=== PATIENT | female | born 1960 | race Caucasian/White ===

== ENCOUNTER 2016-12-13 10:36 | Observation (INO) ==
[2016-12-13] MEDS ORDERED: SALINE FLUSH 10ml SYRINGE IVF PRN (10:46)
[2016-12-13] MEDS ORDERED: DiphenhydrAMINE 50 MG/ML INJECTION IVP ONE (10:47)
[2016-12-13] MEDS ORDERED: ALBUTEROL 2.5mg/3ml (0.083%) NEB AEROSOL ONE (10:47)
[2016-12-13] MEDS ORDERED: METHYLPREDNISOLONE SOD SUCC 125mg/2ml INJECTION IVP ONE (10:47)
[2016-12-13] MEDS ORDERED: NS 1,000 ML IV ONE ×2 (10:48→13:11)
--- NOTE | 2016-12-13 10:48 | Emergency Department Report ---
Allergic Reaction HPI - General Stated complaint: skin burning,throat tightness Time Seen by Provider: 12/13/16 10:46 Source: patient, EMS Mode of arrival: EMS Limitations: no limitations - History of Present Illness HPI narrative: Patient is a 56-year-old female presents the emergency department for evaluation of shortness of air, swelling of throat and tongue. Patient went swimming in a pool today approximately half an hour after getting out of the pool patient felt flushed and burning all over her skin this started developed some shortness of air in her throat and tongue. EMS was called, EMS was unable to obtain IV access patient was placed on a nonrebreather. EMS reported at one time a blood pressure of 60/40, on arrival patient was speaking is have her call more swollen, oxygen saturation's were normal blood pressure 111/53 heart rate 98. MD complaint: allergic reaction Onset (ago): hour(s) Exposure: unknown Symptoms: rash, difficulty breathing, tongue swelling Previous Allergic Reaction History: none - Related Data Home Medications Medication Instructions Recorded Confirmed Bumetanide 1 mg PO BID #60 06/20/14 12/13/16 Chlorthalidone 25 mg PO DAILY #30 06/20/14 12/13/16 Meloxicam 7.5 mg PO DAILY #30 06/20/14 12/13/16 PARoxetine HCl [Paxil] 60 mg PO DAILY #0 tab 06/20/14 12/13/16 Potassium Chloride ER Tab [K-Dur] 20 meq PO BID #30 06/20/14 12/13/16 Propranolol HCl 40 mg PO BID #60 06/20/14 12/13/16 Previous Rx's Medication Instructions Recorded Meloxicam [Mobic] 15 mg PO DAILY #30 tab 07/07/14 Allergies Allergy/AdvReac Type Severity Reaction Status Date / Time meperidine Allergy Unknown ITCHING, Verified 12/13/16 11:15 RASH morphine Allergy Unknown RASH, Verified 12/13/16 11:15 ITCHING sulfasalazine AdvReac Unknown TONGUE Verified 12/13/16 11:15 FISSURE Review of Systems Constitutional: Reports: weakness. Denies: fever, chills ENT: Reports: throat pain, dysphagia Cardiovascular: Denies: chest pain Respiratory: Reports: dyspnea, wheezes. Denies: cough Gastrointestinal: Denies: abdominal pain Genitourinary: Denies: urgency, dysuria Musculoskeletal: Denies: back pain Neurological: Denies: headache, weakness Psychiatric: Reports: anxiety. Denies: depression Allergic/Immunologic: Reports: facial swelling, urticaria PFSH Medical History Updates: Migraines. Hypertension. Peripheral edema. Hypokalemia. Depression. Psoriatic arthritis Surgical History: Hip replacement - Social History Smoking status: Current every day smoker Substance use type: does not use Alcohol intake frequency: does not drink Physical Exam - General General appearance: alert, anxious - Eye Eye exam: Present: normal appearance - ENT ENT exam: Present: normal oropharynx, mucous membranes dry - Chest Chest inspection: Present: symmetric chest wall rise, rash (mild erythema,). Absent: tenderness - Respiratory Respiratory exam: Present: normal lung sounds bilaterally, wheezes (faint upper) . Absent: respiratory distress, stridor, accessory muscle use - Cardiovascular Cardiovascular exam: Present: regular rate, normal rhythm, normal heart sounds - Abdominal Exam Abdominal exam: Present: soft. Absent: distention - Extremities Exam Extremities exam: Present: full ROM - Skin Skin exam: Present: warm, dry, erythema - Neurological Exam Neurological exam: Present: alert, oriented X3 - Psychiatric Psychiatric exam: Present: normal affect, anxious Course - Reevaluation(s) Reevaluation #1: Patient still complaining of some mild tightness in her throat, tongue swelling has improved, is complaining of continued shortness of air, after epinephrine, Solu-Medrol, albuterol, 50 mg of Benadryl Patient continuing to improve, is complaining of some continued chest tightness , DuoNeb ordered, Pepcid IV ordered Patient much improved still complaining of some mild tightness in her throat, and some mild dyspnea, troponin has returned, 0.167, given patient's hemoglobin of 16, suspect that this might be due to some mild dehydration, however will treat with aspirin, EKG Allergic Reaction - [facility] Narrative Medical decision making narrative: Patient resolution of symptoms except for some mild shortness of air she feels is located in her throat. Troponin is elevated at 0.167, did discuss briefly with cardiology, given patient's constellation of symptoms, dosing of epinephrine, and signs of dehydration with a hemoglobin of 16, they feel that this might be dilutional rather than acute coronary. They would recommend hospitalist admit and they would be happy to consult. Discussed case with Dr. Haynes, he will admit to the CCU, for further evaluation and monitoring - Differential Diagnosis Differential diagnosis: Likely: anaphylaxis, allergic reaction, adverse reaction to drug - Medical Records Attestation: I reviewed the patient's medical records. - Lab Data Attestation: I reviewed the patient's lab results. Result diagrams: 12/13/16 12:33 12/13/16 12:07 - Radiology Data Attestation: I reviewed the patient's radiology results. No acute cardiopulmonary findings - EKG Data EKG #1 EKG shows normal: sinus rhythm Rate: normal Rhythm: NSR Cisco/QRS: left axis deviation Interpretation: no acute changes Disposition Clinical Impression: Elevated troponin Anaphylaxis Qualifiers: Encounter type: initial encounter Qualified Code(s): T78.2XXA - Anaphylactic shock, unspecified, initial encounter Disposition: To OBS [facility] [place] Condition: Stable Prescriptions: No Action Meloxicam 7.5 mg PO DAILY #30 Propranolol HCl 40 mg PO BID #60 Chlorthalidone 25 mg PO DAILY #30 Bumetanide 1 mg PO BID #60 Potassium Chloride ER Tab [K-Dur] 20 meq PO BID #30 PARoxetine HCl [Paxil] 60 mg PO DAILY #0 tab Meloxicam [Mobic] 15 mg PO DAILY #30 tab Referrals: Ben Jones MD [Family Provider] - - Seen By: physician
[2016-12-13] MEDS ORDERED: ALBUTEROL/IPRATROPIUM 2.5mg-0.5mg/3ml NEB AEROSOL ONE (11:56)
[2016-12-13] MEDS ORDERED: FAMOTIDINE PB 20 MG/50 ML BAG IV SCH (12:00)
[2016-12-13] MEDS ORDERED: ONDANSETRON 4 MG/2 ML INJECTION IVP ONE (12:35)
[2016-12-13] MEDS ORDERED: ASPIRIN 81 MG CHEWABLE TABLET PO ONE (13:07)
[2016-12-13] MEDS ORDERED: ONDANSETRON 4 MG/2 ML INJECTION IVP PRN (13:58)
--- NOTE | 2016-12-13 14:14 | History & Physical Report ---
History of Present Illness Date: 12/13/16 Chief complaint: Shortness of breath HPI: 56-year-old female who is brought to the hospital after experiencing shortness of breath earlier today. Patient states that she jumped into her swimming pool and quickly became very short of breath afterwards. Believes that there is a mixup in the chemicals that are used to clean her swimming pool. She states that she got out of the swimming pool became very short of breath and experienced tightness in her chest. [place] as though she was becoming flushed all over. She denies any syncope seizures visual irritation changes. She states that she became very nauseous. States that the chest tightness did not radiate anywhere. She did not vomit. She states that her tongue swelled up and that she feels as though there is something stuck in the back of her throat. Patient admits to being noncompliant with her medications because of cost constraints. Upon arrival to the emergency department and after receiving epinephrine she feels much better. EMS documents a systolic blood pressure of [address]. Review of Systems All systems: reviewed and no additional remarkable complaints except as stated PFSH Patient Stated Medical History Hypertension Yes Other Musculoskeletal Yes: ARTHRITIS Depression Yes Medical History Updates: Migraines. Hypertension. Peripheral edema. Hypokalemia. Depression. Psoriatic arthritis Surgical History: Hip replacement - Social History Smoking status: Current every day smoker packs per day: 0.5 Alcohol intake: current Alcohol intake frequency: 3 or more drinks per day Medications Home Medications Medication Instructions Recorded Confirmed Type Bumetanide 1 mg PO BID #60 06/20/14 12/13/16 History Chlorthalidone 25 mg PO DAILY #30 06/20/14 12/13/16 History Meloxicam 7.5 mg PO DAILY #30 06/20/14 12/13/16 History PARoxetine HCl [Paxil] 60 mg PO DAILY #0 tab 06/20/14 12/13/16 History Potassium Chloride ER Tab [K-Dur] 20 meq PO BID #30 06/20/14 12/13/16 History Propranolol HCl 40 mg PO BID #60 06/20/14 12/13/16 History Allergies Allergy/AdvReac Type Severity Reaction Status Date / Time meperidine Allergy Unknown ITCHING, Verified 12/13/16 11:15 RASH morphine Allergy Unknown RASH, Verified 12/13/16 11:15 ITCHING sulfasalazine AdvReac Unknown TONGUE Verified 12/13/16 11:15 FISSURE Exam Vital Signs: Temperature 97.6 F 12/13/16 10:40 Pulse Rate 82 12/13/16 13:30 Respiratory Rate 17 12/13/16 13:30 Blood Pressure 128/60 12/13/16 13:14 Pulse Oximetry 90 12/13/16 13:15 Oxygen Delivery Method Room Air Gen.-awake alert oriented 3, NAD HEENT - CHUCK; EOMI; Tongue edematous Neck - no stridor CV - RRR Lungs - CTAB Abd - benign Ext - no e/c/c Neuro - nonfocal Rectal - deferred - deferred Skin - WDI Height: 5 ft 8 in Weight: 112.5 kg Results - Labs CBC & Chem 7: 12/13/16 12:33 12/13/16 12:07 Assessment and Plan DVT Prophylaxis: Lovenox GI Prophylaxis: Protonix Resuscitation Status: Full Code Assessment and Plan: 1. Anaphylaxis - much improved after receiving epinephrine and steroids. Continue steroids. Clinically improving. 2. Elevated troponin - secondary to #1. Will trend and consult cardiology if trends upward. ASA given in ER. May benefit from OP stress test. 3. HTN - continue BB. Hold diuretics. 4. Hypokalemia - replace IV. 5. Hyperglycemia - likely from stress. Will check A1c. - Time spent with patient 25 - 35 minutes Hospital Course Summary Disclaimer: The visit summary below is not to be considered part of the above Progress Note.
[2016-12-13 14:26] VITALS: BMI 35.6
[2016-12-13] MEDS ORDERED: PNEUMOCOCCAL 13 VACCINE 0.5ml INJECTION IM ONE (14:29)
[2016-12-13] MEDS: METHYLPREDNISOLONE SOD SUCC 125mg/2ml INJECTION IVP SCH ×2 (14:47→21:30)
[2016-12-13] MEDS: POTASSIUM CHLORIDE INJ 40 MEQ in NS 1,000 ML IV SCH (14:48)
[2016-12-13] MEDS: ENOXAPARIN 40 MG/0.4 ML INJECTION SQ SCH (14:48)
[2016-12-13] MEDS ORDERED: ACETAMINOPHEN 500 MG TABLET PO PRN (21:15)
[2016-12-13] MEDS: HYDROCODONE/APAP 5mg/325mg TABLET PO PRN (21:30)
[2016-12-14] MEDS: POTASSIUM CHLORIDE INJ 40 MEQ in NS 1,000 ML IV SCH (00:36)
[2016-12-14 03:36] VITALS: BP 125/60
[2016-12-14] MEDS: METHYLPREDNISOLONE SOD SUCC 125mg/2ml INJECTION IVP SCH ×2 (05:00→11:14)
--- NOTE | 2016-12-14 08:33 | Discharge Instructions ---
Discharge Plan - Med Rec/Dispo Referrals/Follow Up: NEWTON BREWER [Physician] - Prescriptions: Continue Meloxicam 7.5 mg PO DAILY #30 Propranolol HCl 40 mg PO BID #60 Chlorthalidone 25 mg PO DAILY #30 Bumetanide 1 mg PO BID #60 Potassium Chloride ER Tab [K-Dur] 20 meq PO BID #30 PARoxetine HCl [Paxil] 60 mg PO DAILY #0 tab Meloxicam [Mobic] 15 mg PO DAILY #30 tab Discharge Instructions/Outpatient Orders: Final Provider Discharge Instructions Location: Determined By Patient - Disposition 01 Discharged Home, Self-Care
--- NOTE | 2016-12-14 08:40 | Discharge Summary ---
Discharge Information Date of admission: 12/13/16 13:29 Attending Physician: Bernice Burgos MD Primary care physician: Ben Jones MD - Discharge Diagnosis (1) Anaphylaxis Qualifiers: Encounter type: initial encounter Qualified Code(s): T78.2XXA - Anaphylactic shock, unspecified, initial encounter Status: Resolved - Laboratory Labs: 12/14/16 04:52 12/14/16 04:52 History of Present Illness HPI: 56-year-old female who is brought to the hospital after experiencing shortness of breath earlier today. Patient states that she jumped into her swimming pool and quickly became very short of breath afterwards. Believes that there is a mixup in the chemicals that are used to clean her swimming pool. She states that she got out of the swimming pool became very short of breath and experienced tightness in her chest. [place] as though she was becoming flushed all over. She denies any syncope seizures visual irritation changes. She states that she became very nauseous. States that the chest tightness did not radiate anywhere. She did not vomit. She states that her tongue swelled up and that she feels as though there is something stuck in the back of her throat. Patient admits to being noncompliant with her medications because of cost constraints. Upon arrival to the emergency department and after receiving epinephrine she feels much better. EMS documents a systolic blood pressure of [address] Objective Vital signs: Temperature 97.9 F 12/14/16 02:52 Pulse Rate 74 12/14/16 04:30 Respiratory Rate 15 12/14/16 04:30 Blood Pressure 125/60 12/14/16 03:34 Pulse Oximetry 90 12/14/16 04:30 Oxygen Delivery Method Room Air Rhythm: Normal Sinus Rhythm Height: 5 ft 9 in Weight: 109.6 kg Body Mass Index: 35.6 - Constitutional Present: no acute distress - Routine HEENT Exam Head: Present: normocephalic, atraumatic Eye: Present: EOMI, PERRL - Routine Respiratory Exam Present: CTA bilaterally - Routine Cardiovascular Exam Present: RRR, S1, S2 - Routine Abdominal Exam Present: soft, normoactive bowel sounds, non distended, non tender - Routine Extremities Exam Present: no edema - Routine Musculoskeletal Exam Musculoskeletal: Present: no clubbing or cyanosis - Routine Skin Exam Present: intact, dry, warm - Routine Neurological Exam Present: alert, oriented X3, CN II-XII intact - Routine Psychiatric Exam Present: normal affect, normal thought process Hospital Course This is a general summary of the patient's hospital course. For more details refer to the complete medical record. This is a 56-year-old female admitted for an allergic reaction to chemicals in her swelling. She received IV fluids and IV steroids during her hospitalization. In the emergency department she required 1 dose of epinephrine. She is back to baseline at time of discharge. Of note she had a mildly elevated troponin at time of admission which trended back to normal by time of discharge. This likely secondary to the reaction. However, given her risk factors of smoking, age and hypertension she would benefit from an outpatient stress test. This was discussed with the patient and she states that she will bring it up with her family practitioner. She is being continued on the same medications as prior to her hospitalization. Discharge Plan - Med Rec/Dispo Referrals/Follow Up: BEN JONES [Physician] - Prescriptions: Continue Meloxicam 7.5 mg PO DAILY #30 Propranolol HCl 40 mg PO BID #60 Chlorthalidone 25 mg PO DAILY #30 Bumetanide 1 mg PO BID #60 Potassium Chloride ER Tab [K-Dur] 20 meq PO BID #30 PARoxetine HCl [Paxil] 60 mg PO DAILY #0 tab Meloxicam [Mobic] 15 mg PO DAILY #30 tab Discharge Instructions/Outpatient Orders: Final Provider Discharge Instructions Location: Determined By Patient - Disposition 01 Discharged Home, Self-Care
--- NOTE | 2016-12-14 10:19 | XRay Report ---
INDICATION: cough, elevated white count PROCEDURE: CHEST 2-VIEWS UPRIGHT (PA & LAT) Encounter: Initial COMPARISON: May 23, 2014 FINDINGS: The lungs are clear without evidence of focal abnormal airspace opacity. There is no pleural effusion or pneumothorax. The heart size, mediastinal contours and pulmonary vascularity are within normal limits. There is no significant skeletal abnormality. IMPRESSION: No acute cardiopulmonary disease. .
[2016-12-14] MEDS ORDERED: PNEUMOCOCCAL VAC ADMIN CHARGE INJ ONE (11:13)
[2016-12-14] MEDS: ENOXAPARIN 40 MG/0.4 ML INJECTION SQ SCH (11:16)
[2016-12-14] MEDS: HYDROCODONE/APAP 5mg/325mg TABLET PO PRN (11:19)
[2016-12-14 11:53] VITALS: PULSE 80; RESP 27; TEMP 97.1; O2SAT 95
== END 2016-12-14 11:35 | disposition home or self-care (01) ==
LOC: CCU 10:36 → ED 10:36 → CCU 13:29
PROVIDERS: ADMIT Internal Medicine; ATTEND Internal Medicine